=== PATIENT | female | born 1990 | race African-American/Black ===

== ENCOUNTER 2016-09-26 09:25 | Emergency (ER) | payer OTHER, MEDICAID ==
[~2016-09-26] VITALS: Ht 157.5 cm; Wt 60.0 kg
[2016-09-26 09:50] VITALS: BP 118/80
[2016-09-26] MEDS ORDERED: ACETAMINOPHEN 500MG TABLET PO ONE (10:00)
== END 2016-09-26 10:14 | disposition home or self-care (01) ==
LOC: ER 09:53
DX: S00.12XA Contusion of left eyelid and periocular area, initial encounter (principal); Y04.0XXA Assault by unarmed brawl or fight, initial encounter; Y93.89 Activity, other specified; Y92.89 Other specified places as the place of occurrence of the external cause; Y99.8 Other external cause status
CPT/HCPCS: 99282